=== PATIENT | male | born 1980 | race Caucasian/White ===

== ENCOUNTER 2020-03-12 19:57 | Emergency (ER) | payer OTHER ==
[~2020-03-12] VITALS: Ht 185.4 cm; Wt 100.0 kg
[2020-03-12] MEDS ORDERED: IBUPROFEN 600MG TAB PO ONE (22:15)
[2020-03-12 22:19] VITALS: BP 153/71
--- NOTE | 2020-03-13 08:22 | REP ---
Right ankle: Four views. History: Pain and swelling after inversion injury. Findings: Four views right ankle demonstrate moderate anterolateral soft-tissue swelling. Ankle mortise is intact. No fracture is seen. Joint spaces are preserved. Impression: No fracture noted. Moderate anterolateral soft-tissue swelling. Electronically Signed by Rajendra Portillo MD 03/13/2020 08:13 A
== END 2020-03-12 22:41 | disposition home or self-care (01) ==
LOC: M ED 19:57
DX: S93.401A Sprain of unspecified ligament of right ankle, initial encounter (principal); X50.1XXA Overexertion from prolonged static or awkward postures, initial encounter; Y92.009 Unspecified place in unspecified non-institutional (private) residence as the place of occurrence of the external cause

== ENCOUNTER 2020-06-09 07:33 | Day surgery (SDC) | payer OTHER ==
[~2020-06-09] VITALS: Ht 177.8 cm; Wt 104.8 kg
[~2020-06-09 07:33] MED LIST: NS 1,000 ML IV ONE; OMEP40CA97 PO
[2020-06-09] MEDS ORDERED: propofoL 200 MG/20 ML VIAL As Ordered ONE (08:14)
[2020-06-09] MEDS ORDERED: LIDOCAINE 2% 100MG/5ML SDV (FOR ANES.) As Ordered ONE (08:14)
[2020-06-09] MEDS ORDERED: fentaNYL 100 MCG/2 ML INJECTION (J3010) As Ordered ONE (08:14)
--- NOTE | 2020-06-09 09:12 | ROOR ---
Patient Name: Burt Mckeon Procedure Date: 06/09/2020 8:50 AM Date of : 1980 Age: 40 Room: [facility] Gender: Male Note Status: Finalized Procedure: Upper Endoscopy + Biopsies Indications: Heartburn, Exclusion of Corona's esophagus Providers: Lior Duarte MD Referring MD: SUMIT PEÑALOZA MD Requesting Provider: Medicines: Monitored Anesthesia Care Complications: No immediate complications. Procedure: Pre-Anesthesia Assessment: - The heart rate, respiratory rate, oxygen saturations, blood pressure, adequacy of pulmonary ventilation, and response to care were monitored throughout the procedure. The Endoscope was introduced through the mouth, and advanced to the second part of duodenum. The upper GI endoscopy was accomplished without difficulty. The patient tolerated the procedure well. Findings: The Z-line was irregular and was found 40 cm from the incisors. Multiple biopsies were obtained with cold forceps for evaluation to rule out Corona's Esophagus randomly at the gastroesophageal junction. A small hiatal hernia was present. No other significant abnormalities were identified in a careful examination of the stomach. The exam of the duodenum was otherwise normal. Impression: - Z-line irregular, 40 cm from the incisors. - Small hiatal hernia. - Multiple biopsies were obtained at the gastroesophageal junction. - The examination was otherwise normal. Recommendation: - Patient has a contact number available for emergencies. The signs and symptoms of potential delayed complications were discussed with the patient. Return to normal activities tomorrow. Written discharge instructions were provided to the patient. - High fiber diet. - Discharge patient to home. - Follow an antireflux regimen. - Continue present medications. - Await pathology results. - Telephone GI clinic for pathology results in 1 week. - Return to referring physician. - Repeat upper endoscopy for surveillance based on pathology results. - The findings and recommendations were discussed with the patient. Lior Duarte MD Lior Duarte MD 06/09/2020 9:11:46 AM Electronically signed by Lior Duarte MD Number of Addenda: 0 Note Initiated On: 06/09/2020 8:50 AM Estimated Blood Loss: Estimated blood loss: none.
[2020-06-09 09:30] VITALS: BP 121/78
== END 2020-06-09 09:53 | disposition home or self-care (01) ==
LOC: M SDC 07:33
PROVIDERS: ATTEND Internal Medicine Gastroenterology
DX: K22.8 Other specified diseases of esophagus (principal); K44.9 Diaphragmatic hernia without obstruction or gangrene; R12 Heartburn; K21.9 Gastro-esophageal reflux disease without esophagitis; Z87.891 Personal history of nicotine dependence
CPT/HCPCS: 43239; 88305; J3010

== ENCOUNTER 2020-10-07 02:40 | Emergency (ER) | payer OTHER ==
[~2020-10-07] VITALS: Ht 185.4 cm; Wt 109.2 kg
[~2020-10-07 02:40] MED LIST changes: -NS 1,000 ML IV ONE
--- OUTSIDE RECORDS SUMMARY | 2020-10-07 02:51 | CCD ---
Author Author [facility] Organization [facility] Address Unknown Phone Unavailable Care Team Providers Care Inspection Clerk Name Role Phone Lexus Duarte MD Unavailable Unavailable Lexus Duarte MD Unavailable Unavailable Lexus Duarte MD Unavailable Unavailable Lexus Duarte MD Unavailable Unavailable Lexus Duarte MD Unavailable Unavailable Lexus Duarte MD Unavailable Unavailable Lexus Duarte MD Unavailable Unavailable Lexus Duarte MD Unavailable Unavailable Lexus Duarte MD Unavailable Unavailable Lexus Duarte MD Unavailable Unavailable Lexus Duarte MD Unavailable Unavailable Lexus Duarte MD Unavailable Unavailable Lexus Duarte MD Unavailable Unavailable Lexus Duarte MD Unavailable Unavailable Lexus Duarte MD Unavailable Unavailable Lexus Duarte MD Unavailable Unavailable Lexus Duarte MD Unavailable Unavailable Lexus Duarte MD Unavailable Unavailable Lexus Duarte MD Unavailable Unavailable Lexus Duarte MD Unavailable Unavailable Lexus Duarte MD Unavailable Unavailable Lexus Duarte MD Unavailable Unavailable Lexus Duarte MD Unavailable Unavailable Lexus Duarte MD Unavailable Unavailable Lexus Duarte MD Unavailable Unavailable Lexus Duarte MD Unavailable Unavailable Lexus Duarte MD Unavailable Unavailable Lexus Duarte MD Unavailable Unavailable Lexus Duarte MD Unavailable Unavailable Lexus Duarte MD Unavailable Unavailable Lexus Duarte MD Unavailable Unavailable Lexus Duarte MD Unavailable Unavailable Lexus Duarte MD Unavailable Unavailable Lexus Duarte MD Unavailable Unavailable Lexus Duarte MD Unavailable Unavailable Lexus Duarte MD Unavailable Unavailable Felicia, S Lior MD Unavailable Unavailable Felicia, S Lior MD Unavailable Unavailable Felicia, S Lior MD Unavailable Unavailable Felicia, S Lior MD Unavailable Unavailable Felicia, S Lior MD Unavailable Unavailable Felicia, S Lior MD Unavailable Unavailable Fleicia, S Lior MD Unavailable Unavailable Felicia, S Lior MD Unavailable Unavailable Felicia, S Lior MD Unavailable Unavailable Felicia, S Lior MD Unavailable Unavailable Felicia, S Lior MD Unavailable Unavailable Re-disclosure Warning The records that you are about to access may contain information from federally-assisted alcohol or drug abuse programs. If such information is present, then the following federally mandated warning applies: This information has been disclosed to you from records protected by federal confidentiality rules (42 CFR part 2). The federal rules prohibit you from making any further disclosure of this information unless further disclosure is expressly permitted by the written consent of the person to whom it pertains or as otherwise permitted by 42 CFR part 2. A general authorization for the release of medical or other information is NOT sufficient for this purpose. The Federal rules restrict any use of the information to criminally investigate or prosecute any alcohol or drug abuse patient.The records that you are about to access may contain highly sensitive health information, the redisclosure of which is protected by Article 27-F of the [facility] Public Health law. If you continue you may have access to information: Regarding HIV / AIDS; Provided by facilities licensed or operated by the [facility] Office of Mental Health; or Provided by the [facility] Office for People With Developmental Disabilities. If such information is present, then the following [facility] mandated warning applies: This information has been disclosed to you from confidential records which are protected by state law. State law prohibits you from making any further disclosure of this information without the specific written consent of the person to whom it pertains, or as otherwise permitted by law. Any unauthorized further disclosure in violation of state law may result in a fine or detention sentence or both. A general authorization for the release of medical or other information is NOT sufficient authorization for further disc losure. Family History Family Member Name Family Member Gender Family Member Status Date o f Status Description Data Source(s) Unknown Male Problem [facility] ([facility]) Encounters Encounter Providers Location Date Indications Data Source(s ) Outpatient Attender: Lior Duarte MD Main Office 05/20/2020 03:30:00 PM EDT [facility] ([facility]) Medications Medication Brand Name Start Date Product Form Dose Route Admi nistrative Instructions Pharmacy Instructions Status Indications Reaction Description Data Source(s) No Active Medications 05/20/2020 12:00:00 AM EDT completed [facility] ([facility]) Omeprazole 40 MG Delayed Release Oral Capsule Omeprazole 05/20/2020 12:00:00 AM EDT ORAL active [facility] ([facility]) Insurance Providers Payer name Policy type / Coverage type Policy ID Covered democrat ID Covered democrat's relationship to baxter Policy [employer] Plan Information [facility] ACTIVE DUTY [id number] SP [id number] [facility] Referrals Commercial [id number] Self [id number] [facility] Referrals Commercial [id number] Self [id number] [facility] Referrals Commercial [id number] Self [id number] [facility] [id number] S [id number] [facility] HUMANA - O/P [id number] 18 [id number] Problems, Conditions, and Diagnoses Code Display Name Description Problem Type Effective Dates Data Source(s) 258685835 Gastroesophageal reflux disease Gastroesophageal reflux disease Problem 05/20/2020 12:00:00 AM EDT [facility] ([facility]) Surgeries/Procedures Procedure Description Date Indications Data Source(s) UPPER NDSC BIOPSY SINGLE/MULTIPLE 06/09/2020 12:00:00 AM EDT [facility] ([facility]) Results ID Date Data Source [id number] 06/09/2020 08:56:00 AM EDT [facility] ([facility]) Name Value Range Interpretation Code Description Data Lilo rce(s) Supporting Document(s) Surgical pathology study Laboratory test result [facility] ([facility] [facility]) FINAL DIAGNOSIS Esophagus, biopsy below Z-line: Squamocolumnar junctional mucosa with moderate chronic inflammation. No intestinal metaplasia is noted. 06/10/2020 - 1439 CLINICAL DIAGNOSIS Heartburn x 5 years 06/09/2020 - 1327 GROSS DIAGNOSIS Received in formalin labeled "biopsy below Z line" is a 0.8 x 0.2 x 0.2 cm. aggregate of multiple mucosal fragments. All in one. Shonna 06/09/2020 - 1327 Signed aHrpal Healy MD 06/10/2020 1514 Procedure Vital Signs ID Date Data Source UNK Name Value Range Interpretation Code Description Data Source(s) Body weight 104.328 kg 104.328 kg [facility] ([facility]) Body mass index (BMI) [Ratio] 30.3 kg/m2 30.3 k g/m2 [facility] ([facility]) Heart rate 75 /min 75 /min [facility] ([facility]) Diastolic blood pressure 85 mm[Hg] 85 mm[Hg] [facility] ([facility]) Systolic blood pressure 126 mm[Hg] 126 mm[Hg] M EDENT ([facility]) Body weight 230.00 [lb_av] 230.00 [lb_av] MEDEN T ([facility]) Temp 97.2 Body height 73 [in_i] 73 [in_i] [facility] ([facility]) 6'1"
[2020-10-07] MEDS ORDERED: ONDANSETRON 4 MG ORAL DISINTEGRATING TAB PO ONE (06:30)
[2020-10-07] MEDS ORDERED: ACETAMINOPHEN 500 MG TAB PO ONE (06:30)
--- OUTSIDE RECORDS SUMMARY | 2020-10-07 06:33 | CCD ---
Author Author [facility] Organization [facility] Address Unknown Phone Unavailable Care Team Providers Care Credit Card Control Clerk Name Role Phone Lexus Duarte MD [...] is protected by Article 27-F of the [facility] Public Health law. If you continue you may have access to information: Regarding HIV / AIDS; Provided by facilities licensed or operated by the [facility] Office of Mental Health; or Provided by the [facility] Office for People With Developmental Disabilities. If such information is present, then the following [facility] mandated warning applies: This information [...] law may result in a fine or half-way sentence or both. A general authorization for [...] 05/20/2020 12:00:00 AM EDT ORAL active [facility] ([facility]) Insurance Providers Payer name Policy type / Coverage type Policy ID Covered alliance party ID Covered alliance party's relationship to baxter Policy [employer] Plan Information [facility] ACTIVE DUTY [id number] SP [id number] [facility] Referrals Commercial [id number] Self [id number] [facility] Referrals Commercial [id number] Self [id number] [facility] Referrals Commercial [id number] Self [id number] [facility] [id number] S [id number] [facility] HUMANA - O/P [id number] 18 [id number] Problems, Conditions, and Diagnoses Code Display Name Description Problem Type Effective Dates Data Source(s) [id number] Gastroesophageal reflux disease Gastroesophageal reflux disease Problem 05/20/2020 12:00:00 AM EDT [facility] ([facility]) Surgeries/Procedures Procedure Description Date Indications Data Source(s) UPPER NDSC BIOPSY SINGLE/MULTIPLE 06/09/2020 12:00:00 AM EDT [facility] ([facility]) Results ID Date Data Source [id number] 06/09/2020 08:56:00 AM EDT [facility] ([facility]) Name Value Range Interpretation Code Description Data Lilo rce(s) Supporting Document(s) Surgical pathology study Laboratory test result [facility] ([facility] [employer]) FINAL DIAGNOSIS Esophagus, biopsy below Z-line: Squamocolumnar junctional mucosa with moderate chronic inflammation. No intestinal metaplasia is noted. 06/10/2020 - 1439 CLINICAL DIAGNOSIS Heartburn x 5 years 06/09/2020 - 1327 GROSS DIAGNOSIS Received in formalin labeled "biopsy below Z line" is a 0.8 x 0.2 x 0.2 cm. aggregate of multiple mucosal fragments. All in one. Shonna 06/09/2020 - 1327 Signed Harpal Healy MD 06/10/2020 1514 Procedure Vital Signs [...] Body height 73 [in_i] 73 [in_i] [facility] ([facility]) 6'1"
[2020-10-07 07:15] VITALS: O2SAT 98
[2020-10-07] MEDS ORDERED: ONDA4TAB6 PO (07:21)
[2020-10-07 07:42] VITALS: BP 121/81
== END 2020-10-07 07:45 | disposition home or self-care (01) ==
LOC: M ED 02:40
DX: R50.83 Postvaccination fever (principal); Z11.52 Encounter for screening for COVID-19; M79.10 Myalgia, unspecified site; R53.81 Other malaise; R61 Generalized hyperhidrosis; R11.0 Nausea; R51.9 Headache, unspecified; B96.81 Helicobacter pylori [H. pylori] as the cause of diseases classified elsewhere; F41.9 Anxiety disorder, unspecified; F17.200 Nicotine dependence, unspecified, uncomplicated
CPT/HCPCS: 87880; 99284; Q0162; U0003